=== PATIENT | female | born 1995 ===

== ENCOUNTER 2024-01-09 11:55 | Emergency (ER) | payer OTHER ==
[~2024-01-09] VITALS: Ht 154.9 cm; Wt 56.7 kg
[2024-01-09 20:43] LABS: Bacterial Vaginosis PCR Positive (NEGATIVE); Candida Group, PCR NOT DETECTED (NOT DETECT); Candida glabrata-krusei, PCR DETECTED (NOT DETECT)
[2024-01-11] MEDS ORDERED: METR500 PO (03:53)
[2024-01-12 10:31] LABS: APTIMA MEDIA TYPE MultiTest Swab; C. TRACHOMATIS BY TMA Negative (Negative); N. GONORRHOEAE BY TMA Negative (Negative); SPECIMEN SOURCE Vaginal
[2024-01-12 19:13] LABS: HIV-1 QNT BY NAAT (COPIES/ML) Not Detected cpy/mL; HIV-1 QNT BY NAAT INTERP Not Detected (Not Detected); HIV-1 QNT NAAT (LOG COPIES/ML) Not Detected
== END 2024-01-09 19:40 | disposition home or self-care (01) ==
LOC: ER 11:55
PROVIDERS: Physician Assistant
DX: N76.0 Acute vaginitis (principal)
CPT/HCPCS: 86592; 87481; 87491; 87536; 87591; 87661; 87801; 99283